=== PATIENT | male | born 1955 | race Caucasian/White ===

== ENCOUNTER 2021-06-15 14:19 | Inpatient (IN) | payer OTHER, MEDICARE ==
[2021-06-15] MEDS ORDERED: MORPHINE SULFATE 4 MG/ML SYRINGE IM STA (14:38)
[2021-06-15] MEDS ORDERED: IPRATROPIUM-ALBUTEROL 3 ML NEB INHALATION STA (14:39)
[2021-06-15] MEDS ORDERED: ALBUTEROL NEBULIZED 2.5 MG/3 ML INHALATION STA (14:39)
--- NOTE | 2021-06-15 14:41 | ED ---
General Adult HPI - General Chief complaint: Upper Respiratory Infection Stated complaint: Coughing up blood Time Seen by Provider: 06/15/21 14:31 Source: patient, RN notes reviewed, old records reviewed Mode of arrival: ambulatory Limitations: no limitations - History of Present Illness Initial comments: 66-year-old male presents for evaluation of cough and right-sided chest pain. Patient developed a sharp chest pain after a coughing spell. He states he did feel a pop. He's had cough for approximately 2 weeks which is productive of mucus. He is currently being worked up for lung mass has had an outpatient CT and is awaiting CAT scan and consultation with oncology. He denies fever. Denies central chest pain. Patient is fully vaccinated against coronavirus. - Related Data Home Medications Medication Instructions Recorded Confirmed Albuterol Sulfate [Ventolin HFA] 2 puff INHALATION RT-QID PRN 06/15/21 06/15/21 Losartan Potassium 100 mg PO DAILY 06/15/21 06/15/21 Rivaroxaban [Xarelto] 20 mg PO DAILY 06/15/21 06/15/21 hydroCHLOROthiazide [Hydrodiuril] 12.5 mg PO DAILY 06/15/21 06/15/21 metFORMIN HCL [Glucophage] 500 mg PO BID 06/15/21 06/15/21 Previous Rx's Medication Instructions Recorded Levofloxacin [Levaquin] 500 mg PO DAILY #7 tab 05/18/16 Allergies Allergy/AdvReac Type Severity Reaction Status Date / Time hydromorphone HCl AdvReac Hallucinati Verified 06/15/21 16:21 [From Dilaudid] ons Review of Systems ROS Statement: Those systems with pertinent positive or pertinent negative responses have been documented in the HPI. ROS Other: All systems not noted in ROS Statement are negative. Past Medical History Past Medical History: Deep Vein Thrombosis (DVT), Hypertension, Pulmonary Embolus (PE) Additional Past Medical History / Comment(s): ulcerative COLITIS/stricture, PANCREATITIS X2 ( LAST DEC 2015),HERNIA History of Any Multi-Drug Resistant Organisms: None Reported Past Surgical History: Adenoidectomy, Appendectomy, Bowel Resection, Tonsillectomy Additional Past Surgical History / Comment(s): 05/15/16 Open reduction of incarcerated incisional hernia, bilateral myocutaneous flap advancement, excision skin lesion, lysis of adhesions. Other surgical hx: EGD, colonoscopies, STATES 8 INCHES OF COLON REMOVED/lysis of adhesions. Past Anesthesia/Blood Transfusion Reactions: No Reported Reaction Past Psychological History: No Psychological Hx Reported Smoking Status: Current every day smoker Past Alcohol Use History: Daily Past Drug Use History: Marijuana - Past Family History Mother Additional Family Medical History / Comment(s): alcoholism Father Family Medical History: Cancer Additional Family Medical History / Comment(s): colon General Exam Limitations: no limitations General appearance: alert, in no apparent distress Head exam: Present: atraumatic, normocephalic Eye exam: Present: normal appearance, PERRL ENT exam: Present: normal exam Neck exam: Present: normal inspection. Absent: tenderness, meningismus Respiratory exam: Present: rhonchi, chest wall tenderness. Absent: respiratory distress Cardiovascular Exam: Present: regular rate, normal rhythm GI/Abdominal exam: Present: soft. Absent: distended, tenderness, guarding Extremities exam: Present: normal inspection, normal capillary refill Neurological exam: Present: alert, oriented X3, CN II-XII intact. Absent: motor sensory deficit Psychiatric exam: Present: normal affect, normal mood Skin exam: Present: warm, dry, intact. Absent: cyanosis, diaphoretic Course Vital Signs 06/15/21 06/15/21 06/15/21 14:21 15:15 15:27 Temperature 98.3 F Pulse Rate 87 77 88 Respiratory 22 18 18 Rate Blood Pressure 126/62 O2 Sat by Pulse 97 Oximetry Medical Decision Making - Medical Decision Making 66-year-old male with coughing spell, increased cough and sputum production over the past 2 weeks, right-sided lateral chest pain. Patient has x-ray showing a significant left-sided infiltrate. No displaced rib fracture present, no pneumothorax. Laboratory testing performed which does show a mild leukocytosis, normal lactic acid, normal electrolytes, elevated bilirubin, AST ALT and alkaline phosphatase of uncertain etiology at this time. No abdominal pain in this patient. He will be admitted for pneumonia, failed outpatient treatment and for symptom control. Case discussed with [facility]. - Lab Data Result diagrams: 06/15/21 16:12 06/15/21 16:12 Lab Results 06/15/21 06/15/21 06/15/21 Range/Units 16:12 16:12 16:12 WBC 10.9 H (3.8-10.6) k/uL RBC 5.12 (4.30-5.90) m/uL Hgb 15.2 (13.0-17.5) gm/dL Hct 45.8 (39.0-53.0) % MCV 89.5 (80.0-100.0) fL MCH 29.6 (25.0-35.0) pg MCHC 33.1 (31.0-37.0) g/dL RDW 13.0 (11.5-15.5) % Plt Count 279 (150-450) k/uL MPV 8.2 Neutrophils % 76 % Lymphocytes % 14 % Monocytes % 8 % Eosinophils % 0 % Basophils % 1 % Neutrophils # 8.3 H (1.3-7.7) k/uL Lymphocytes # 1.5 (1.0-4.8) k/uL Monocytes # 0.9 (0-1.0) k/uL Eosinophils # 0.0 (0-0.7) k/uL Basophils # 0.1 (0-0.2) k/uL Sodium 137 (137-145) mmol/L Potassium 3.7 (3.5-5.1) mmol/L Chloride 104 (98-107) mmol/L Carbon Dioxide 21 L (22-30) mmol/L Anion Gap 12 mmol/L BUN 24 H (9-20) mg/dL Creatinine 0.92 (0.66-1.25) mg/dL Est GFR (CKD-EPI)AfAm >90 (>60 ml/min/1.73 sqM) Est GFR (CKD-EPI)NonAf 87 (>60 ml/min/1.73 sqM) Glucose 160 H (74-99) mg/dL POC Glucose (mg/dL) (75-99) mg/dL POC Glu Fur Cutter ID Plasma Lactic Acid Krishan 2.0 (0.7-2.0) mmol/L Calcium 9.7 (8.4-10.2) mg/dL Total Bilirubin 1.4 H (0.2-1.3) mg/dL AST 127 H (17-59) U/L ALT 182 H (4-49) U/L Alkaline Phosphatase 400 H (38-126) U/L Total Protein 6.3 (6.3-8.2) g/dL Albumin 3.6 (3.5-5.0) g/dL 06/15/21 Range/Units 16:37 WBC (3.8-10.6) k/uL RBC (4.30-5.90) m/uL Hgb (13.0-17.5) gm/dL Hct (39.0-53.0) % MCV (80.0-100.0) fL MCH (25.0-35.0) pg MCHC (31.0-37.0) g/dL RDW (11.5-15.5) % Plt Count (150-450) k/uL MPV Neutrophils % % Lymphocytes % % Monocytes % % Eosinophils % % Basophils % % Neutrophils # (1.3-7.7) k/uL Lymphocytes # (1.0-4.8) k/uL Monocytes # (0-1.0) k/uL Eosinophils # (0-0.7) k/uL Basophils # (0-0.2) k/uL Sodium (137-145) mmol/L Potassium (3.5-5.1) mmol/L Chloride (98-107) mmol/L Carbon Dioxide (22-30) mmol/L Anion Gap mmol/L BUN (9-20) mg/dL Creatinine (0.66-1.25) mg/dL Est GFR (CKD-EPI)AfAm (>60 ml/min/1.73 sqM) Est GFR (CKD-EPI)NonAf (>60 ml/min/1.73 sqM) Glucose (74-99) mg/dL POC Glucose (mg/dL) 146 H (75-99) mg/dL POC Glu Fur Cutter ID Adriana Hull Plasma Lactic Acid Krishan (0.7-2.0) mmol/L Calcium (8.4-10.2) mg/dL Total Bilirubin (0.2-1.3) mg/dL AST (17-59) U/L ALT (4-49) U/L Alkaline Phosphatase (38-126) U/L Total Protein (6.3-8.2) g/dL Albumin (3.5-5.0) g/dL Disposition Clinical Impression: Pneumonia, COPD (chronic obstructive pulmonary disease) Disposition: ADMITTED IP TO THIS HOSP Condition: Stable Is patient prescribed a controlled substance at d/c from ED?: No Referrals: Ana Daniel MD [Primary Care Provider] - 1-2 days Time of Disposition: 16:59 Decision to Admit Reason: Admit from EC Decision Date: 06/15/21 Decision Time: 16:59
--- NOTE | 2021-06-15 15:48 | XR ---
EXAMINATION TYPE: XR chest 2V DATE OF EXAM: 06/15/2021 COMPARISON: 04/17/2016 HISTORY: Cough TECHNIQUE: 2 views FINDINGS: There is coarse interstitial increased density in the left lung compared to the right. Hear t size is normal. There is no heart failure. Mediastinum is normal. There is pleural thickening at the lung apices unchanged. IMPRESSION: There is new left side pulmonary interstitial infiltrate compared to old exam. Normal hea rt.
[2021-06-15] MEDS ORDERED: KETOROLAC 15 MG/ML 1 ML VIAL IVP STA ×2 (15:54→20:04)
[2021-06-15] MEDS ORDERED: cefTRIAXone IN SWFI 1,000 MG/10 ML SYRINGE IVP STA (15:54)
[2021-06-15] MEDS ORDERED: AZITHROMYCIN 500 MG in SODIUM CHLORIDE 0.9% 250 ML IVPB STA (15:54)
[2021-06-15 16:20] LABS: Basophils # (A) 0.1 k/uL (0-0.2); Basophils % (A) 1 %; Eosinophils % (A) 0 %; HCT 45.8 % (39.0-53.0); HGB 15.2 gm/dL (13.0-17.5); Lymphocytes # (A) 1.5 k/uL (1.0-4.8); Lymphocytes % (A) 14 %; MCH 29.6 pg (25.0-35.0); MCHC 33.1 g/dL (31.0-37.0); MCV 89.5 fL (80.0-100.0); Mean Platelet Volume 8.2; Monocytes # (A) 0.9 k/uL (0-1.0); Monocytes % (A) 8 %; Neutrophils # (A) 8.3 k/uL (1.3-7.7); Neutrophils % (A) 76 %; Platelet Count 279 k/uL (150-450); RBC 5.12 m/uL (4.30-5.90); WBC 10.9 k/uL (3.8-10.6)
[2021-06-15] MEDS ORDERED: SODIUM CHLORIDE 0.9% 500 ML 500 ML IV ONE (16:35)
[2021-06-15 16:37] LABS: ALT 182 U/L (4-49); AST 127 U/L (17-59); African American GFR (CKD) >90 (>60 ml/min/1.73 sqM); Albumin 3.6 g/dL (3.5-5.0); Alkaline Phosphatase 400 U/L (38-126); Anion Gap 12 mmol/L; Blood Urea Nitrogen 24 mg/dL (9-20); Calcium 9.7 mg/dL (8.4-10.2); Carbon Dioxide 21 mmol/L (22-30); Chloride 104 mmol/L (98-107); Glucose 160 mg/dL (74-99); Non-African American GFR(CKD) 87 (>60 ml/min/1.73 sqM); Potassium 3.7 mmol/L (3.5-5.1); Sodium 137 mmol/L (137-145); Total Bilirubin 1.4 mg/dL (0.2-1.3); Total Protein 6.3 g/dL (6.3-8.2)
[2021-06-15 16:39] LABS: Glucose,Whole Blood 146 mg/dL (75-99)
[2021-06-15] MEDS ORDERED: methylPREDNISolone SOD SUCCI 125 MG/2 ML VIAL IV STA (16:53)
[2021-06-15] MEDS ORDERED: IPRATROPIUM-ALBUTEROL 3 ML NEB INHALATION PRN (16:53)
[2021-06-15] MEDS ORDERED: MORPHINE SULFATE 4 MG/ML SYRINGE IVP PRN (16:54)
[2021-06-15] MEDS ORDERED: RX INFO: IV CONTRAST WAS GIVEN 1 EACH MISC MISCELLANE PRN (17:10)
[2021-06-15] MEDS ORDERED: BENZONATATE 100 MG CAP PO PRN (17:13)
--- NOTE | 2021-06-15 17:21 | P.HPIM ---
History of Present Illness H&P Date: 06/15/21 Chief Complaint: Worsening cough This is a 66-year-old male with past medical history noted below presented to the emergency room with worsening cough. Patient said that he was seen by his PCP out-of-town for worsening cough last week and subsequently had a chest x-ray concerning for possible lung malignancy. Patient underwent computed tomography scan of the chest ordered by his PCP that was done in [place] showing possible lung mass and liver mass. Patient told me that a computed tomography scan was done without contrast. Patient was also given a prescription for Levaquin with no improvement in his symptoms. Patient said that he is having severe cough that is productive of white sputum. He denies fevers or chills. No significant shortness of breath. He said that he took antibiotic as prescribed and currently he is on day 5 out of 7 of Levaquin. He said the cough is so severe that he is having back pain and this morning her does not been his back so he decided to come to the emergency room. Patient denies any hemoptysis. Patient is on anticoagulation secondary to history of lower extremity DVT and PE. Patient told me that he has been smoking since age 10 and was smoking 1 pack a day until last week when he started to cut down and currently he is smoking 4 cigarettes a day. Patient was evaluated in the ER and will be admitted to the hospital for further management of his medical problems noted below. Review of Systems Review of system: 14 points review of systems were obtained and were negative except to what were mentioned in the HPI. Past Medical History Past Medical History: Deep Vein Thrombosis (DVT), Hypertension, Pulmonary Embolus (PE) Additional Past Medical History / Comment(s): ulcerative COLITIS/stricture, PANCREATITIS X2 ( LAST DEC 2015),HERNIA History of Any Multi-Drug Resistant Organisms: None Reported Past Surgical History: Adenoidectomy, Appendectomy, Bowel Resection, Tonsil lectomy Additional Past Surgical History / Comment(s): 05/15/16 Open reduction of incarcerated incisional hernia, bilateral myocutaneous flap advancement, excision skin lesion, lysis of adhesions. Other surgical hx: EGD, colonoscopies, STATES 8 INCHES OF COLON REMOVED/lysis of adhesions. Past Anesthesia/Blood Transfusion Reactions: No Reported Reaction Past Psychological History: No Psychological Hx Reported Smoking Status: Current every day smoker Past Alcohol Use History: Daily Past Drug Use History: Marijuana - Past Family History Mother Additional Family Medical History / Comment(s): alcoholism Father Family Medical History: Cancer Additional Family Medical History / Comment(s): colon Medications and Allergies Home Medications Medication Instructions Recorded Confirmed Type Levofloxacin [Levaquin] 500 mg PO DAILY #7 tab 05/18/16 06/15/21 Rx Albuterol Sulfate [Ventolin HFA] 2 puff INHALATION RT-QID PRN 06/15/21 06/15/21 History Losartan Potassium 100 mg PO DAILY 06/15/21 06/15/21 History Rivaroxaban [Xarelto] 20 mg PO DAILY 06/15/21 06/15/21 History hydroCHLOROthiazide [Hydrodiuril] 12.5 mg PO DAILY 06/15/21 06/15/21 History metFORMIN HCL [Glucophage] 500 mg PO BID 06/15/21 06/15/21 History Allergies Allergy/AdvReac Type Severity Reaction Status Date / Time hydromorphone HCl AdvReac Hallucinati Verified 06/15/21 16:21 [From Dilaudid] ons Physical Exam Vitals: Vital Signs Temp Pulse Resp BP Pulse Ox 06/15/21 15:27 88 18 06/15/21 15:15 77 18 06/15/21 14:21 98.3 F 87 22 126/62 97 Intake and Output 06/15/21 06/15/21 06/15/21 06:59 14:59 22:59 Other: Weight 87.997 kg General: The patient is awake and alert, in no distress Eye: there is normal conjunctiva bilaterally. Neck: The neck is supple, there is no JVD. Cardiovascular: Normal S1-S2, no S3-S4, no murmurs. Respiratory: Lungs clear to auscultation bilaterally Gastrointestinal: Abdomen is soft, nontender Musculoskeletal: There is no pedal edema. Neurological:. Speech is normal. Skin: Skin is warm and dry Results CBC & Chem 7: 06/15/21 16:12 06/15/21 16:12 Labs: Abnormal Lab Results - Last 24 Hours (Table) 06/15/21 06/15/21 06/15/21 Range/Units 16:12 16:12 16:37 WBC 10.9 H (3.8-10.6) k/uL Neutrophils # 8.3 H (1.3-7.7) k/uL Carbon Dioxide 21 L (22-30) mmol/L BUN 24 H (9-20) mg/dL Glucose 160 H (74-99) mg/dL POC Glucose (mg/dL) 146 H (75-99) mg/dL Total Bilirubin 1.4 H (0.2-1.3) mg/dL AST 127 H (17-59) U/L ALT 182 H (4-49) U/L Alkaline Phosphatase 400 H (38-126) U/L Assessment and Plan Assessment: 1. Left lung pneumonia, failed outpatient treatment with Levaquin. I would start patient on IV Zosyn. Obtain pro-calcitonin. Blood and sputum culture. 2. History of lung and liver mass noted on outside hospital CT. Since patient informed me that the computed tomography scan was done without contrast I would go ahead and repeat computed tomography scan of the chest, abdomen, and pelvis with IV contrast for further evaluation of underlying malignancy. 3. History of DVT and PE on anticoagulation with Rivaroxaban 4. Heavy tobacco use, counseled extensively to quit 5. Essential hypertension, blood pressure within acceptable range 6. Type 2 diabetes, hold metformin and continue sliding scale insulin 7. CODE STATUS, patient is full code. Discussed with him and his at bedside Today, I reviewed his medication list and lab work results. Hold home dose of hydrochlorothiazide. Continue IV fluid hydration. Mucinex twice daily and Tessalon Perles as needed. Repeat lab work in the morning.
[2021-06-15] MEDS: SODIUM CHLORIDE 0.9% 1,000 ML IV SCH (18:10)
--- NOTE | 2021-06-15 18:22 | CT ---
EXAMINATION TYPE: CT ChestAbdPelvis w con DATE OF EXAM: 06/15/2021 COMPARISON: 05/18/2016 and 04/17/2016 HISTORY: Rule out malignancy Chest pain abdominal pain CT DLP: 1327.6 mGycm Automated exposure control for dose reduction was used. CONTRAST: Performed with IV Contrast, patient injected with 100 mL of Isovue 300. There is some bullous emphysema. There is patchy infiltrate in the left upper lobe which is mostly in terstitial. There is some pleural thickening and consolidation lateral right upper lobe. There is 1.5 cm low-density infiltrate right lower lobe posteriorly. There is no pleural effusion. Heart size is normal. There are a few paratracheal and bronchial lymph nodes that measure up to 1.5 cm. There is beltran bcarinal lymph node that measures 2 cm. Thoracic aorta is intact. There is no aneurysm or dissection. Heart size is normal. There is no pericardial effusion. There is 1 cm cyst in the anterior right lobe of the liver. Gallbladder appears normal. The bile duct s are not dilated. Spleen is intact. There is no pancreatic mass. Stomach is intact. There is no adrenal mass. Kidneys show satisfactory contrast opacification. There is no hydronephrosi s. There are clips from previous surgery at the sigmoid colon. Bladder distends smoothly. There is en larged prostate that measures 6 cm. There is no inguinal hernia. There is no free fluid in the pelvis . Terminal ileum appears normal. There is no mesenteric edema. There is no ascites or free air. There is no sign of a bowel obstruction. Thoracic and lumbar spine appear intact. There is no evidence of focal bone destruction. Sternum is intact. There is 15% wedging of T12 vertebra that appears old. The bony pelvis is intact. The hip joints are intact. IMPRESSION: There is some patchy bilateral pulmonary infiltrates which appear increased in the anterior left uppe r lobe compared to old exam. Right upper lobe infiltrate slightly improved. There is improved aeratio n of both lung bases compared to old exam. No suspicious pulmonary mass. There is clearing of a cyst in the body of the pancreas compared to old exam. Small hepatic cyst is u nchanged. Pulmonary emphysema not changed. There are some new enlarged mediastinal and bronchial lymph nodes compared to old exam. These are non specific.
[2021-06-15] MEDS: IPRATROPIUM-ALBUTEROL 3 ML NEB INHALATION SCH (19:16)
[2021-06-15] MEDS: INSULIN ASPART (NovoLOG) 100 UNIT/ML VIAL SQ SCH ×2 (20:13→21:42)
[2021-06-15 21:01] LABS: Glucose,Whole Blood 210 mg/dL (75-99)
[2021-06-15] MEDS: guaiFENesin 600 MG TABLET.ER PO SCH (21:41)
[2021-06-15] MEDS: PIPERACILLIN-TAZOBACTAM 3.375 GM in SODIUM CHLORIDE 0.9% 100 ML IVPB SCH (23:44)
[2021-06-16] MEDS ORDERED: methylPREDNISolone SOD SUCCI 125 MG/2 ML VIAL IV SCH
[2021-06-16] MEDS: SODIUM CHLORIDE 0.9% 1,000 ML IV SCH ×2 (00:43→08:10)
[2021-06-16] MEDS ORDERED: CALCIUM CARBONATE LIQUID 500 MG/5 ML CUP PO STA (02:54)
[2021-06-16 07:09] LABS: Glucose,Whole Blood 161 mg/dL (75-99)
[2021-06-16 07:38] VITALS: BP 125/61; RESP 16; TEMP 97.8
[2021-06-16] MEDS: INSULIN ASPART (NovoLOG) 100 UNIT/ML VIAL SQ SCH ×2 (08:09→12:09)
[2021-06-16] MEDS: PIPERACILLIN-TAZOBACTAM 3.375 GM in SODIUM CHLORIDE 0.9% 100 ML IVPB SCH (08:10)
[2021-06-16] MEDS: guaiFENesin 600 MG TABLET.ER PO SCH (08:10)
[2021-06-16] MEDS: IPRATROPIUM-ALBUTEROL 3 ML NEB INHALATION SCH ×2 (08:31→12:06)
[2021-06-16 08:57] LABS: Basophils # (A) 0.01 X 10*3/uL (0.00-0.10); Basophils % (A) 0.1 %; Eosinophils # (A) 0 X 10*3/uL (0.04-0.35); Eosinophils % (A) 0 %; HCT 38.8 % (39.6-50.0); HGB 12.6 g/dL (13.0-17.0); Lymphocytes # (A) 0.61 X 10*3/uL (0.90-5.00); Lymphocytes % (A) 7.9 %; MCH 29.2 pg (27.0-32.0); MCHC 32.5 g/dL (32.0-37.0); Mean Platelet Volume 10.4 fL (9.5-12.2); Monocytes # (A) 0.71 X 10*3/uL (0.20-1.00); Monocytes % (A) 9.1 %; Neutrophils # (A) 6.38 X 10*3/uL (1.80-7.70); Neutrophils % (A) 82.3 %; Platelet Count 229 X 10*3/uL (140-440); RBC 4.31 X 10*6/uL (4.40-5.60); RDW 13.1 % (11.5-14.5); WBC 7.76 X 10*3/uL (4.50-10.00)
[2021-06-16] MEDS ORDERED: RIVAROXABAN 20 MG TAB PO SCH (09:00)
[2021-06-16] MEDS ORDERED: LOSARTAN 50 MG TAB PO SCH (09:00)
[2021-06-16 09:53] LABS: African American GFR (CKD) 91.1 (60.0-200.0); Anion Gap 9.1 mmol/L (4.00-12.00); Calcium 8.5 mg/dL (8.7-10.3); Carbon Dioxide 24.9 mmol/L (21.6-31.8); Non-African American GFR(CKD) 78.6 (60.0-200.0); Potassium 3.9 mmol/L (3.5-5.5)
[2021-06-16 11:53] LABS: Glucose,Whole Blood 182 mg/dL (75-99)
[2021-06-16 12:09] VITALS: PULSE 68
--- NOTE | 2021-06-16 13:28 | P.CNPUL ---
History of Present Illness Consult date: 06/16/21 Reason for consult: lung mass History of present illness: This is a 66-year-old male patient was Hospital as for shortness of breath and persistent cough. The patient was treated on outpatient basis With antibiotics without much improvement. For that reason, the patient was noted to the hospital. Note that the patient was supposed to see me on outpatient basis for an abnormal CAT scan of the chest. The patient had a CAT scan of the chest that was done through his primary care physician out of [place], [place] and the patient was found to have a spiculated left upper lobe mass measuring 1.3 x 2 cm in size there was quite suspicious for neoplasm. There was also pleural thickening along the posterior left sided thoracic pleura along with some increased interstitial markings in the left upper lobe. There was also addition al spiculated nodule in the left upper lobe measuring 7 mm in size and the right lung bullous emphysematous changes were also noted. There was another semisolid nodule in the right upper lobe measuring 1.6 x 1.9 cm in size centrally there was a solid component measuring 7 mm in size. The mediastinum was also showing some mild enlarged lymph nodes in the right lower paratracheal region with a glen rt axis of 1.1 and there was also prominence of the left hilum suggesting of possibility of underlying left hilar lymphadenopathy. There was a large subcarinal lymph node measuring 1.6 x 2.6 cm in size. No other lymphadenopathy was seen. This patient is known to me. Of taking care of him more than 10 years ago for a total of DVT and pulmonary embolism. The back then he was placed on anticoagulation which was subsequently discontinued. He had recurrent event approximately 4 years following that and since then his been maintained on Xarelto. During this current admission, repeat CAT scan was done that showed similar findings. He is a chronic smoker. He is smoking up to half to 1 pack of cigarettes a day. His been smoking since age of 10. No hemoptysis. No pleurisy. No swelling in lower extremities. Some skeletal chest open because of his persistent cough. Review of Systems Constitutional: Reports as per HPI Eyes: denies as per HPI, denies blurred vision, denies bulging eye, denies decreased vision, denies diplopia, denies discharge, denies dry eye, denies irritation, denies itching, denies pain, denies photophobia, denies loss of peripheral vision, denies loss of vision, denies tunnel vision/blind spots Ears: deny: decreased hearing, ear discharge, earache, tinnitus Ears, nose, mouth and throat: Reports as per HPI Breasts: absent: as per HPI, gynecomastia Cardiovascular: Reports shortness of breath Respiratory: Reports dyspnea, Reports excessive sputum, Reports wheezing Gastrointestinal: Reports as per HPI Genitourinary: Reports as per HPI Musculoskeletal: Reports as per HPI Musculoskeletal: absent: ankle pain, ankle stiffness, ankle swelling Integumentary: Reports as per HPI Neurological: Reports as per HPI Psychiatric: Reports as per HPI Endocrine: Reports as per HPI Hematologic/Lymphatic: Reports as per HPI Allergic/Immunologic: Reports as per HPI Past Medical History Past Medical History: COPD, Diabetes Mellitus, Deep Vein Thrombosis (DVT), Hypertension, Pulmonary Embolus (PE) Additional Past Medical History / Comment(s): ulcerative COLITIS/stricture, PANCREATITIS X2 ( LAST DEC 2015),HERNIA History of Any Multi-Drug Resistant Organisms: None Reported Past Surgical History: Adenoidectomy, Appendectomy, Bowel Resection, Tonsillectomy Additional Past Surgical History / Comment(s): 05/15/16 Open reduction of incarcerated incisional hernia, bilateral myocutaneous flap advancement, excision skin lesion, lysis of adhesions. Other surgical hx: EGD, colonoscopies, STATES 8 INCHES OF COLON REMOVED/lysis of adhesions. Past Anesthesia/Blood Transfusion Reactions: No Reported Reaction Past Psychological History: No Psychological Hx Reported Smoking Status: Current every day smoker Past Alcohol Use History: Daily Past Drug Use History: Marijuana - Past Family History Mother Additional Family Medical History / Comment(s): alcoholism Father Family Medical History: Cancer Additional Family Medical History / Comment(s): colon Medications and Allergies Home Medications Medication Instructions Recorded Confirmed Type Albuterol Sulfate [Ventolin HFA] 2 puff INHALATION RT-QID PRN 06/15/21 06/15/21 History Losartan Potassium 100 mg PO DAILY 06/15/21 06/15/21 History Rivaroxaban [Xarelto] 20 mg PO DAILY 06/15/21 06/15/21 History hydroCHLOROthiazide [Hydrodiuril] 12.5 mg PO DAILY 06/15/21 06/15/21 History metFORMIN HCL [Glucophage] 500 mg PO BID 06/15/21 06/15/21 History Azithromycin 250 mg PO DAILY 3 Days #3 tab 06/16/21 Rx Cephalexin [Keflex] 500 mg PO Q6HR 5 Days #20 cap 06/16/21 Rx Ipratropium-Albuterol Nebulize 3 ml INHALATION QID 30 Days #6 box 06/16/21 Rx [Duoneb 0.5 mg-3 mg/3 ml Soln] guaiFENesin [Mucinex] 1,200 mg PO Q12HR #14 tablet.er 06/16/21 Rx predniSONE 0 mg PO DIRECTED 16 Days #40 tab 06/16/21 Rx Allergies Allergy/AdvReac Type Severity Reaction Status Date / Time hydromorphone HCl AdvReac Hallucinati Verified 06/15/21 16:21 [From Dilaudid] ons Physical Exam Vitals: Vital Signs Temp Pulse Pulse Resp BP BP Pulse Ox 06/16/21 12:33 68 06/16/21 12:06 68 06/16/21 08:48 72 06/16/21 08:31 68 06/16/21 08:00 16 06/16/21 07:00 97.8 F 54 L 16 125/61 96 06/16/21 00:42 98.1 F 79 18 113/60 88 L 06/15/21 19:35 97.7 F 74 18 129/74 94 L 06/15/21 19:34 84 06/15/21 19:16 86 06/15/21 18:04 90 16 105/78 95 06/15/21 15:27 88 18 06/15/21 15:15 77 18 06/15/21 14:21 98.3 F 87 22 126/62 97 Intake and Output 06/15/21 06/16/21 06/16/21 22:59 06:59 14:59 Other: Voiding Method Toilet Toilet Toilet Urinal Urinal Urinal # Voids 1 1 Weight 87.997 kg The patient appeared well nourished and normally developed. Vital signs as documented. Head exam is unremarkable. No scleral icterus or corneal arcus noted. Neck is without jugular venous distension, thyromegaly, or carotid bruits. Carotid upstrokes are brisk bilaterally. Lungs diminished breath sounds bilaterally along with scattered expiratory wheezes throughout the lung his bilaterally.. Cardiac exam reveals the PMI to be normally sized and situated. Rhythm is regular. First and second heart sounds normal. No murmurs, rubs or gallops. Abdominal exam reveals normal bowel sounds, no masses, no organomegaly and no aortic enlargement. Extremities are nonedematous and both femoral and pedal pulses are normal.Examination of the skin revealed no evidence of significant rashes, suspicious appearing nevi or other concerning lesions.Neurologically, the patient is awake and alert and the patient does not have any focal neurological deficit. Cranial nerves are essentially intact. Results - Laboratory Findings CBC and BMP: 06/16/21 05:36 06/16/21 05:36 Abnormal lab findings: Abnormal Labs 06/15/21 06/15/21 06/15/21 16:12 16:12 16:12 WBC 10.9 H RBC Hgb Hct Immature Gran # Neutrophils # 8.3 H Lymphocytes # Eosinophils # Carbon Dioxide 21 L BUN 24 H BUN/Creatinine Ratio Glucose 160 H POC Glucose (mg/dL) Calcium Total Bilirubin 1.4 H AST 127 H ALT 182 H Alkaline Phosphatase 400 H Procalcitonin 0.51 H 06/15/21 06/15/21 06/16/21 16:37 20:57 05:36 WBC RBC 4.31 L Hgb 12.6 L Hct 38.8 L Immature Gran # 0.05 H Neutrophils # Lymphocytes # 0.61 L Eosinophils # 0 L Carbon Dioxide BUN BUN/Creatinine Ratio Glucose POC Glucose (mg/dL) 146 H 210 H Calcium Total Bilirubin AST ALT Alkaline Phosphatase Procalcitonin 06/16/21 06/16/21 06/16/21 05:36 07:08 11:52 WBC RBC Hgb Hct Immature Gran # Neutrophils # Lymphocytes # Eosinophils # Carbon Dioxide BUN BUN/Creatinine Ratio 24.00 H Glucose 218 H POC Glucose (mg/dL) 161 H 182 H Calcium 8.5 L Total Bilirubin AST ALT Alkaline Phosphatase Procalcitonin - Diagnostic Findings Chest x-ray: image reviewed CT scan - chest: image reviewed Assessment and Plan Plan: 1 left upper lobe mass, spiculated measuring 1.6 by 1.9 cm in size in addition to a smaller lesion in the left upper lobe measuring 7 mm in size and nutritional semisolid mass in the right upper lobe measuring 1 cm and released on lymphadenopathy largest in the subcarinal area. 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 For now, I'm recommending to continue DuoNeb about treatments around the clock and we will arrange the patient home nebulizer. He'll was discharged home today on a course of Levaquin and a prednisone burst taper. We'll set him up for an outpatient PET scan. The patient will see him back in the office discuss the results of the PET scan and further recommendations are to follow based on the results of the PET scan. We'll likely need bronchoscopy with biopsies of the mass in the left upper lobe and the mediastinum lymph nodes are avid on PET scan. Smoking cessation counseling was done. We'll continue to follow. Agree on his discharge for today.
--- NOTE | 2021-06-16 16:02 | P.DS ---
Providers Date of admission: 06/16/21 11:45 Expected date of discharge: 06/16/21 Attending physician: Johanna Montaño Consults: 06/15/21 17:16 Consult Physician Routine Consulting Provider: Gail Ayala Consult Reason/Comments: Suspected lung malignancy Do you want consulting provider notified?: Yes Primary care physician: Ana Daniel Hospital Course: This is a 66-year-old male with past medical history noted below that presented to the emergency room with worsening cough. Patient was evaluated by his PCP recently and a computed tomography scan showed questionable right lung mass. Patient was scheduled to see pulmonology in the office for follow-up. He presented to the ER with worsening cough and was placed on observation for further management of his medical problems noted below 1. Left lung pneumonia, failed outpatient treatment with Levaquin. Pro- calcitonin was elevated. Will finish antibiotic course with Keflex and azithromycin 2. History of lung and liver mass noted on outside hospital CT per report. Repeat computed tomography scan of the chest, abdomen, and pelvis showed no suspicious pulmonary mass. There is bilateral patchy pulmonary infiltrates worse in the left upper lobe. There is also some mediastinal lymphadenopathy 3. History of DVT and PE on anticoagulation with Rivaroxaban 4. Heavy tobacco use, counseled extensively to quit 5. Essential hypertension, blood pressure within acceptable range 6. Type 2 diabetes, resume home dose of metformin Patient was seen and evaluated by pulmonology. Plan was to follow-up in the office. She was given a prescription for DuoNeb's and a nebulizer. He was also given a prescription for steroid taper course. He will follow-up with pulmonary in the office as directed. Patient Condition at Discharge: Fair Plan - Discharge Summary Discharge Rx Participant: No New Discharge Prescriptions: New predniSONE 0 mg PO DIRECTED 16 Days #40 tab Cephalexin [Keflex] 500 mg PO Q6HR 5 Days #20 cap Ipratropium-Albuterol Nebulize [Duoneb 0.5 mg-3 mg/3 ml Soln] 3 ml INHALATION QID 30 Days #6 box Azithromycin 250 mg PO DAILY 3 Days #3 tab guaiFENesin [Mucinex] 1,200 mg PO Q12HR #14 tablet.er Continue metFORMIN HCL [Glucophage] 500 mg PO BID hydroCHLOROthiazide [Hydrodiuril] 12.5 mg PO DAILY Albuterol Sulfate [Ventolin HFA] 2 puff INHALATION RT-QID PRN PRN Reason: Shortness Of Breath Losartan Potassium 100 mg PO DAILY Rivaroxaban [Xarelto] 20 mg PO DAILY Discontinued Levofloxacin [Levaquin] 500 mg PO DAILY #7 tab Discharge Medication List Albuterol Sulfate [Ventolin HFA] 2 puff INHALATION RT-QID PRN 06/15/21 [History] Losartan Potassium 100 mg PO DAILY 06/15/21 [History] Rivaroxaban [Xarelto] 20 mg PO DAILY 06/15/21 [History] hydroCHLOROthiazide [Hydrodiuril] 12.5 mg PO DAILY 06/15/21 [History] metFORMIN HCL [Glucophage] 500 mg PO BID 06/15/21 [History] Azithromycin 250 mg PO DAILY 3 Days #3 tab 06/16/21 [Rx] Cephalexin [Keflex] 500 mg PO Q6HR 5 Days #20 cap 06/16/21 [Rx] Ipratropium-Albuterol Nebulize [Duoneb 0.5 mg-3 mg/3 ml Soln] 3 ml INHALATION QID 30 Days #6 box 06/16/21 [Rx] guaiFENesin [Mucinex] 1,200 mg PO Q12HR #14 tablet.er 06/16/21 [Rx] predniSONE 0 mg PO DIRECTED 16 Days #40 tab 06/16/21 [Rx] Follow up Appointment(s)/Referral(s): Ana Daniel MD [Primary Care Provider] - 1-2 days Cayetano Villegas MD [STAFF PHYSICIAN] - 3 Weeks (Schedule for after PET Scan.) Patient Instructions/Handouts: COPD (Chronic Obstructive Pulmonary Disease) (DC), Positron Emission Tomography Scan (DC) Activity/Diet/Wound Care/Special Instructions: PET SCAN: ( ) 12pm, July 04. Hospital Main Entrance, they will direct you. Discharge Disposition: HOME SELF-CARE
== END 2021-06-16 14:22 | disposition home or self-care (01) | DRG 194 ==
LOC: EC 14:19 → 6NMEDSUR 17:07 → OBSVTOIN 06-16 11:45
PROVIDERS: ADMIT Internal Medicine; ATTEND Internal Medicine
DX: J18.9 Pneumonia, unspecified organism (principal); R17 Unspecified jaundice; K51.90 Ulcerative colitis, unspecified, without complications; J43.9 Emphysema, unspecified; I10 Essential (primary) hypertension; E11.9 Type 2 diabetes mellitus without complications; F17.210 Nicotine dependence, cigarettes, uncomplicated; Z87.19 Personal history of other diseases of the digestive system; Z79.01 Long term (current) use of anticoagulants; Z79.899 Other long term (current) drug therapy; Z86.711 Personal history of pulmonary embolism; Z86.718 Personal history of other venous thrombosis and embolism; Z90.49 Acquired absence of other specified parts of digestive tract; Z88.5 Allergy status to narcotic agent; Z79.84 Long term (current) use of oral hypoglycemic drugs; Z86.59 Personal history of other mental and behavioral disorders
CPT/HCPCS: 36415; 71046; 71260; 74177; 80048; 80053; 83605; 84145; 85025; 87040; 87070; 87205; 93005; 94640; 96365; 96366; 96372; 96375; 99285

== ENCOUNTER → 2021-06-26 | Outpatient (CLI) | payer OTHER ==
--- NOTE | 2021-06-26 16:08 | US ---
EXAMINATION TYPE: US venous doppler duplex LE LT DATE OF EXAM: 06/26/2021 3:51 PM COMPARISON: Prior 03/14/2010 exam. CLINICAL HISTORY: 66-year-old male R22.42 SWELLING OF LEFT LOWER LIMB. Hx DVT in left Popliteal vein. Stopped blood thinners yesterday morning for a procedure tomorrow. SIDE PERFORMED: Left TECHNIQUE: The lower extremity deep venous system is examined utilizing real time linear array sonog helena with graded compression, doppler sonography and color-flow sonography. FINDINGS: VESSELS IMAGED: Common Femoral Vein Deep Femoral Vein Greater Saphenous Vein * Femoral Vein Popliteal Vein Small Saphenous Vein * Proximal Calf Veins (* superficial vessels) Left Leg: Positive for DVT in proximal Popliteal vein to Proximal calf veins. There is the appearanc e of a duplicated popliteal vein. One of these is occluded with thrombus. Thrombus is somewhat isoech oic to echogenic. The other contains incompletely occlusive thrombus. IMPRESSION: 1. Incompletely occlusive, probably chronic DVT within one popliteal vein. 2. The second, duplicated popliteal vein contains occlusive DVT that may be acute. Clot extends into the upper calf veins of the left lower extremity.
== END | disposition home or self-care (01) ==
LOC: RADUSWWP 15:21
PROVIDERS: ATTEND Internal Medicine Critical Care Medicine
DX: Z86.718 Personal history of other venous thrombosis and embolism (principal)